=== PATIENT | male | born 1960 | race African-American/Black ===

== ENCOUNTER 2021-08-31 21:51 | Inpatient (IN) | payer OTHER ==
[2021-08-31 22:25] VITALS: BMI 30.4
[2021-08-31] MEDS ORDERED: MAGNESIUM CITRATE 300 ML BOTTLE PO PRN (22:34)
[2021-08-31] MEDS ORDERED: P-EPHED 60MG/TRIPROLIDI 2.5MG TABLET PO PRN (22:34)
[2021-08-31] MEDS ORDERED: ONDANSETRON *ODT* 4 MG TABLET SL PRN (22:34)
[2021-08-31] MEDS ORDERED: ACETAMINOPHEN 325 MG TABLET (FP) PO PRN (22:34)
[2021-08-31] MEDS ORDERED: BISMUTH SUBSALICYLATE 524 MG/30 ML PO PRN (22:34)
[2021-08-31] MEDS ORDERED: guaiFENesin 200 MG/10 ML 10 ML UNIT-DOSE CUPS PO PRN (22:34)
[2021-08-31] MEDS ORDERED: LOPERAMIDE HCL 2 MG CAPSULE PO PRN (22:34)
[2021-08-31] MEDS ORDERED: METHOCARBAMOL 500 MG TABLET PO PRN (22:34)
[2021-08-31] MEDS ORDERED: BENZOCAINE/MENTHOL (CHLORASEPTIC ) LOZENGE MM PRN (22:34)
[2021-08-31] MEDS ORDERED: MAG HYDROX/AL HYDROX/SIMETH 30 ML UNIT-DOSE CUP PO PRN (22:34)
[2021-08-31] MEDS ORDERED: DICYCLOMINE HCL 10 MG CAPSULE PO PRN (22:34)
[2021-08-31] MEDS ORDERED: MAGNESIUM HYDROX 2400MG/30ML ORAL SUSPENSION 30 ML CUP PO PRN (22:34)
[2021-08-31] MEDS ORDERED: NICOTINE POLACRILEX 2 MG GUM BUC PRN (22:34)
[2021-09-01 08:55] LABS: HEMATOCRIT 43.6 % (35.4-49); HEMOGLOBIN 14.5 GM/dL (11.7-16.9); MCH 31.5 pg (25.7-33.7); MCHC 33.3 g/dl (32.0-35.9); MEAN CELL VOLUME 94.5 fl (80-96); MEAN PLT VOLUME 9.2 fl (7.5-11.1); PLATELET COUNT 198 10^3/uL (134-434); RBC 4.62 M/mm3 (4.00-5.60); RDW 14.5 % (11.9-15.9); WHITE BLOOD COUNT 8.6 K/mm3 (4.0-10.0)
[2021-09-01 09:08] LABS: BLOOD UREA NITROGEN 17.3 mg/dL (7-18); CALCIUM 8.9 mg/dL (8.5-10.1)
[2021-09-01 09:09] LABS: ALBUMIN 3.3 g/dl (3.4-5.0)
[2021-09-01 09:12] LABS: CREATININE 0.8 mg/dL (0.55-1.3)
[2021-09-01 09:13] LABS: BILIRUBIN,TOTAL 0.4 mg/dL (0.2-1); TOT PROT 7.5 g/dl (6.4-8.2)
[2021-09-01] MEDS ORDERED: TUBERCULIN PPD 5 TU/0.1ML VIAL ID ONE (12:47)
[2021-09-01 13:00] VITALS: RESP 18
[2021-09-01] MEDS: PRENATAL VITAMINS W/ FOLIC ACID TABLET (FP) PO SCH (15:09)
[2021-09-01] MEDS: NICOTINE 21 MG/24 HOURS TOPICAL PATCH TD SCH (15:10)
[2021-09-01] MEDS: THIAMINE HCL 100 MG TABLET (FP) PO SCH (21:15)
[2021-09-01] MEDS: hydrOXYzine PAMOATE 25 MG CAPSULE (FP) PO PRN (21:15)
[2021-09-01] MEDS: MELATONIN 5 MG TABLETS PO SCH (21:15)
[2021-09-01] MEDS: IBUPROFEN 400 MG TABLET (FP) PO PRN (21:17)
[2021-09-02] MEDS: ACETAMINOPHEN 325 MG TABLET (FP) PO PRN (08:32)
[2021-09-02] MEDS: NICOTINE 21 MG/24 HOURS TOPICAL PATCH TD SCH (09:51)
[2021-09-02] MEDS: PRENATAL VITAMINS W/ FOLIC ACID TABLET (FP) PO SCH (09:51)
[2021-09-02] MEDS: IBUPROFEN 600 MG TABLET (FP) PO PRN ×2 (12:49→21:12)
[2021-09-02] MEDS: THIAMINE HCL 100 MG TABLET (FP) PO SCH (21:13)
[2021-09-02] MEDS: MELATONIN 5 MG TABLETS PO SCH (21:14)
[2021-09-02] MEDS: hydrOXYzine PAMOATE 25 MG CAPSULE (FP) PO PRN (21:14)
[2021-09-03] MEDS: IBUPROFEN 600 MG TABLET (FP) PO PRN ×2 (06:24→15:38)
[2021-09-03] MEDS: NICOTINE 21 MG/24 HOURS TOPICAL PATCH TD SCH (09:54)
[2021-09-03] MEDS: PRENATAL VITAMINS W/ FOLIC ACID TABLET (FP) PO SCH (09:55)
[2021-09-03] MEDS: ACETAMINOPHEN 325 MG TABLET (FP) PO PRN ×2 (09:56→21:29)
[2021-09-03] MEDS: amLODIPine BESYLATE 5 MG TABLET (FP) PO SCH (10:51)
[2021-09-03] MEDS: HYDROCHLOROTHIAZIDE 25 MG TABLET (FP) PO SCH (10:51)
[2021-09-03] MEDS: AMOXICILLIN 500 MG CAPSULE (FP) PO SCH (21:27)
[2021-09-03] MEDS: THIAMINE HCL 100 MG TABLET (FP) PO SCH (21:28)
[2021-09-03] MEDS: MELATONIN 5 MG TABLETS PO SCH (21:28)
[2021-09-04] MEDS: IBUPROFEN 600 MG TABLET (FP) PO PRN (02:09)
[2021-09-04] MEDS: AMOXICILLIN 500 MG CAPSULE (FP) PO SCH ×3 (07:23→21:41)
[2021-09-04] MEDS: PRENATAL VITAMINS W/ FOLIC ACID TABLET (FP) PO SCH (09:57)
[2021-09-04] MEDS: amLODIPine BESYLATE 5 MG TABLET (FP) PO SCH (09:57)
[2021-09-04] MEDS: HYDROCHLOROTHIAZIDE 25 MG TABLET (FP) PO SCH (09:57)
[2021-09-04] MEDS: NICOTINE 21 MG/24 HOURS TOPICAL PATCH TD SCH (09:58)
[2021-09-04] MEDS: ACETAMINOPHEN 325 MG TABLET (FP) PO PRN (19:50)
[2021-09-04] MEDS: MELATONIN 5 MG TABLETS PO SCH (21:41)
[2021-09-04] MEDS: THIAMINE HCL 100 MG TABLET (FP) PO SCH (21:41)
[2021-09-05] MEDS: AMOXICILLIN 500 MG CAPSULE (FP) PO SCH ×3 (06:26→21:40)
[2021-09-05] MEDS: IBUPROFEN 600 MG TABLET (FP) PO PRN ×2 (06:26→17:12)
[2021-09-05] MEDS: PRENATAL VITAMINS W/ FOLIC ACID TABLET (FP) PO SCH (09:59)
[2021-09-05] MEDS: NICOTINE 21 MG/24 HOURS TOPICAL PATCH TD SCH (09:59)
[2021-09-05] MEDS: amLODIPine BESYLATE 5 MG TABLET (FP) PO SCH (09:59)
[2021-09-05] MEDS: HYDROCHLOROTHIAZIDE 25 MG TABLET (FP) PO SCH (10:00)
[2021-09-05] MEDS: ACETAMINOPHEN 325 MG TABLET (FP) PO PRN (10:01)
[2021-09-05 10:03] LABS: PH,URINE 5.5 (5.0-8.0); URINE APPEARANCE CLEAR; URINE BILIRUBIN NEGATIVE (NEGATIVE); URINE COLOR YELLOW; URINE GLUCOSE (UA) NEGATIVE (NEGATIVE); URINE KETONE NEGATIVE (NEGATIVE); URINE LEUK ESTERASE NEGATIVE (NEGATIVE); URINE NITRITE NEGATIVE (NEGATIVE); URINE PROTEIN NEGATIVE (NEGATIVE); URINE UROBILINOGEN 0.2 mg/dL (0.2-1.0)
[2021-09-05] MEDS: BACITRACIN 0.9 GM PACKET TP SCH (14:42)
[2021-09-05] MEDS: MELATONIN 5 MG TABLETS PO SCH (21:40)
[2021-09-05] MEDS: THIAMINE HCL 100 MG TABLET (FP) PO SCH (21:40)
[2021-09-06] MEDS: IBUPROFEN 600 MG TABLET (FP) PO PRN ×2 (05:24→18:41)
[2021-09-06] MEDS: AMOXICILLIN 500 MG CAPSULE (FP) PO SCH ×3 (07:24→21:14)
[2021-09-06] MEDS: PRENATAL VITAMINS W/ FOLIC ACID TABLET (FP) PO SCH (09:55)
[2021-09-06] MEDS: BACITRACIN 0.9 GM PACKET TP SCH (09:56)
[2021-09-06] MEDS: NICOTINE 21 MG/24 HOURS TOPICAL PATCH TD SCH (09:56)
[2021-09-06] MEDS: amLODIPine BESYLATE 5 MG TABLET (FP) PO SCH (09:56)
[2021-09-06] MEDS: HYDROCHLOROTHIAZIDE 25 MG TABLET (FP) PO SCH (09:56)
[2021-09-06] MEDS: ACETAMINOPHEN 325 MG TABLET (FP) PO PRN (09:57)
[2021-09-06] MEDS: THIAMINE HCL 100 MG TABLET (FP) PO SCH (21:14)
[2021-09-06] MEDS: MELATONIN 5 MG TABLETS PO SCH (21:14)
[2021-09-07] MEDS: IBUPROFEN 400 MG TABLET (FP) PO PRN ×2 (02:07→09:54)
[2021-09-07] MEDS: AMOXICILLIN 500 MG CAPSULE (FP) PO SCH ×3 (06:39→21:09)
[2021-09-07] MEDS: IBUPROFEN 600 MG TABLET (FP) PO PRN (07:12)
[2021-09-07] MEDS: NICOTINE 21 MG/24 HOURS TOPICAL PATCH TD SCH (09:50)
[2021-09-07] MEDS: PRENATAL VITAMINS W/ FOLIC ACID TABLET (FP) PO SCH (09:50)
[2021-09-07] MEDS: HYDROCHLOROTHIAZIDE 25 MG TABLET (FP) PO SCH (09:51)
[2021-09-07] MEDS: amLODIPine BESYLATE 5 MG TABLET (FP) PO SCH (09:51)
[2021-09-07] MEDS: BACITRACIN 0.9 GM PACKET TP SCH (09:51)
[2021-09-07] MEDS: LIDOCAINE VISCOUS 2% ORAL/TOP 15 ML UNIT-DOSE CUP MM PRN (09:54)
[2021-09-07] MEDS: ACETAMINOPHEN 325 MG TABLET (FP) PO PRN (18:15)
[2021-09-07] MEDS: THIAMINE HCL 100 MG TABLET (FP) PO SCH (21:09)
[2021-09-07] MEDS: MELATONIN 5 MG TABLETS PO SCH (21:09)
[2021-09-08] MEDS: IBUPROFEN 400 MG TABLET (FP) PO PRN (01:46)
[2021-09-08] MEDS: AMOXICILLIN 500 MG CAPSULE (FP) PO SCH ×3 (06:29→21:28)
[2021-09-08] MEDS: IBUPROFEN 600 MG TABLET (FP) PO PRN ×2 (10:27→19:00)
[2021-09-08] MEDS: HYDROCHLOROTHIAZIDE 25 MG TABLET (FP) PO SCH (10:28)
[2021-09-08] MEDS: amLODIPine BESYLATE 5 MG TABLET (FP) PO SCH (10:28)
[2021-09-08] MEDS: NICOTINE 21 MG/24 HOURS TOPICAL PATCH TD SCH (10:28)
[2021-09-08] MEDS: PRENATAL VITAMINS W/ FOLIC ACID TABLET (FP) PO SCH (10:29)
[2021-09-08] MEDS: BACITRACIN 0.9 GM PACKET TP SCH (10:30)
[2021-09-08] MEDS: MELATONIN 5 MG TABLETS PO SCH (21:28)
[2021-09-08] MEDS: THIAMINE HCL 100 MG TABLET (FP) PO SCH (21:28)
[2021-09-08] MEDS: LIDOCAINE VISCOUS 2% ORAL/TOP 15 ML UNIT-DOSE CUP MM PRN (21:30)
[2021-09-09] MEDS: AMOXICILLIN 500 MG CAPSULE (FP) PO SCH ×3 (06:08→21:17)
[2021-09-09] MEDS: IBUPROFEN 600 MG TABLET (FP) PO PRN (06:09)
[2021-09-09] MEDS: HYDROCHLOROTHIAZIDE 25 MG TABLET (FP) PO SCH (10:24)
[2021-09-09] MEDS: BACITRACIN 0.9 GM PACKET TP SCH (10:24)
[2021-09-09] MEDS: amLODIPine BESYLATE 5 MG TABLET (FP) PO SCH (10:24)
[2021-09-09] MEDS: NICOTINE 21 MG/24 HOURS TOPICAL PATCH TD SCH (10:24)
[2021-09-09] MEDS: PRENATAL VITAMINS W/ FOLIC ACID TABLET (FP) PO SCH (10:25)
[2021-09-09] MEDS: ACETAMINOPHEN 325 MG TABLET (FP) PO PRN (10:26)
[2021-09-09] MEDS: IBUPROFEN 400 MG TABLET (FP) PO PRN (18:22)
[2021-09-09] MEDS: MELATONIN 5 MG TABLETS PO SCH (21:17)
[2021-09-09] MEDS: THIAMINE HCL 100 MG TABLET (FP) PO SCH (21:17)
[2021-09-10] MEDS: IBUPROFEN 600 MG TABLET (FP) PO PRN ×3 (03:30→19:19)
[2021-09-10] MEDS: AMOXICILLIN 500 MG CAPSULE (FP) PO SCH ×2 (06:17→13:37)
[2021-09-10] MEDS: PRENATAL VITAMINS W/ FOLIC ACID TABLET (FP) PO SCH (09:50)
[2021-09-10] MEDS: HYDROCHLOROTHIAZIDE 25 MG TABLET (FP) PO SCH (09:51)
[2021-09-10] MEDS: NICOTINE 21 MG/24 HOURS TOPICAL PATCH TD SCH (09:51)
[2021-09-10] MEDS: amLODIPine BESYLATE 5 MG TABLET (FP) PO SCH (09:51)
[2021-09-10] MEDS: BACITRACIN 0.9 GM PACKET TP SCH (13:37)
[2021-09-10] MEDS ORDERED: COLLOIDAL OATMEAL 1 BAR EACH TP PRN (16:24)
[2021-09-10] MEDS: MELATONIN 5 MG TABLETS PO SCH (21:30)
[2021-09-10] MEDS: THIAMINE HCL 100 MG TABLET (FP) PO SCH (21:30)
[2021-09-11] MEDS: IBUPROFEN 600 MG TABLET (FP) PO PRN ×2 (03:31→09:53)
[2021-09-11] MEDS: ACETAMINOPHEN 325 MG TABLET (FP) PO PRN (06:58)
[2021-09-11] MEDS: PRENATAL VITAMINS W/ FOLIC ACID TABLET (FP) PO SCH (09:51)
[2021-09-11] MEDS: NICOTINE 21 MG/24 HOURS TOPICAL PATCH TD SCH (09:51)
[2021-09-11] MEDS: amLODIPine BESYLATE 5 MG TABLET (FP) PO SCH (09:52)
[2021-09-11] MEDS: HYDROCHLOROTHIAZIDE 25 MG TABLET (FP) PO SCH (09:52)
[2021-09-11] MEDS: THIAMINE HCL 100 MG TABLET (FP) PO SCH (21:14)
[2021-09-11] MEDS: MELATONIN 5 MG TABLETS PO SCH (21:14)
[2021-09-11] MEDS: IBUPROFEN 400 MG TABLET (FP) PO PRN (21:15)
[2021-09-12] MEDS: IBUPROFEN 600 MG TABLET (FP) PO PRN ×3 (06:12→20:10)
[2021-09-12] MEDS: HYDROCHLOROTHIAZIDE 25 MG TABLET (FP) PO SCH (09:55)
[2021-09-12] MEDS: NICOTINE 21 MG/24 HOURS TOPICAL PATCH TD SCH (09:55)
[2021-09-12] MEDS: amLODIPine BESYLATE 5 MG TABLET (FP) PO SCH (09:55)
[2021-09-12] MEDS: PRENATAL VITAMINS W/ FOLIC ACID TABLET (FP) PO SCH (09:55)
[2021-09-12] MEDS: ACETAMINOPHEN 325 MG TABLET (FP) PO PRN (09:56)
[2021-09-12] MEDS: TRIAMCINOLONE ACET 0.025% OINTMENT 15 GM TUBE TP SCH ×2 (10:59→21:17)
[2021-09-12] MEDS: THIAMINE HCL 100 MG TABLET (FP) PO SCH (21:16)
[2021-09-12] MEDS: MELATONIN 5 MG TABLETS PO SCH (21:17)
[2021-09-13] MEDS: IBUPROFEN 600 MG TABLET (FP) PO PRN ×3 (04:04→21:13)
[2021-09-13] MEDS: PRENATAL VITAMINS W/ FOLIC ACID TABLET (FP) PO SCH (10:17)
[2021-09-13] MEDS: HYDROCHLOROTHIAZIDE 25 MG TABLET (FP) PO SCH (10:17)
[2021-09-13] MEDS: amLODIPine BESYLATE 5 MG TABLET (FP) PO SCH (10:17)
[2021-09-13] MEDS: TRIAMCINOLONE ACET 0.025% OINTMENT 15 GM TUBE TP SCH ×2 (10:18→21:11)
[2021-09-13] MEDS: NICOTINE 21 MG/24 HOURS TOPICAL PATCH TD SCH (10:18)
[2021-09-13] MEDS: ACETAMINOPHEN 325 MG TABLET (FP) PO PRN (13:29)
[2021-09-13] MEDS: MELATONIN 5 MG TABLETS PO SCH (21:11)
[2021-09-13] MEDS: THIAMINE HCL 100 MG TABLET (FP) PO SCH (21:12)
[2021-09-14] MEDS: IBUPROFEN 600 MG TABLET (FP) PO PRN (02:53)
[2021-09-14 08:09] VITALS: BP 102/72; PULSE 78; TEMP 97.3
[2021-09-14] MEDS: amLODIPine BESYLATE 5 MG TABLET (FP) PO SCH (09:20)
[2021-09-14] MEDS: PRENATAL VITAMINS W/ FOLIC ACID TABLET (FP) PO SCH (09:20)
[2021-09-14] MEDS: NICOTINE 21 MG/24 HOURS TOPICAL PATCH TD SCH (09:20)
[2021-09-14] MEDS: HYDROCHLOROTHIAZIDE 25 MG TABLET (FP) PO SCH (09:20)
[2021-09-14] MEDS: TRIAMCINOLONE ACET 0.025% OINTMENT 15 GM TUBE TP SCH (09:20)
== END 2021-09-14 09:25 | disposition home or self-care (01) | DRG 772 ==
LOC: YASAS 21:51 → Y5N 09-01 12:08
PROVIDERS: ADMIT Allergy & Immunology; ATTEND Psychiatry & Neurology Pain Medicine
PROC: HZ42ZZZ Group Counseling for Substance Abuse Treatment, Cognitive-Behavioral (ICD-10-PCS; principal; 2021-09-01)
DX: F10.20 Alcohol dependence, uncomplicated (principal); F14.20 Cocaine dependence, uncomplicated; F17.210 Nicotine dependence, cigarettes, uncomplicated; F43.10 Post-traumatic stress disorder, unspecified; I10 Essential (primary) hypertension; K21.9 Gastro-esophageal reflux disease without esophagitis; K02.9 Dental caries, unspecified; K06.1 Gingival enlargement; M76.01 Gluteal tendinitis, right hip; W01.0XXA Fall on same level from slipping, tripping and stumbling without subsequent striking against object, initial encounter; Y93.01 Activity, walking, marching and hiking; Y92.230 Patient room in hospital as the place of occurrence of the external cause; L30.9 Dermatitis, unspecified; Z56.0 Unemployment, unspecified
CPT/HCPCS: 36415; 80053; 81003; 82962; 85027; 86780; 93005; 93010; C9803-CS; U0003; U0005

== ENCOUNTER 2021-09-13 15:54 | Emergency (ER) | payer OTHER ==
[2021-09-13 16:07] VITALS: BP 132/74; PULSE 76; RESP 18; TEMP 97.7; BMI 30.2
== END 2021-09-13 18:34 | disposition home or self-care (01) ==
LOC: JERFT 15:54
DX: M54.50 Low back pain, unspecified (principal); M54.2 Cervicalgia; M25.571 Pain in right ankle and joints of right foot; W01.0XXA Fall on same level from slipping, tripping and stumbling without subsequent striking against object, initial encounter
CPT/HCPCS: 72220-TC-FY; 73610-TC-RT-FY; 73630-TC-RT-FY; 99285-25